=== PATIENT | male | born 1985 | race Caucasian/White ===

== ENCOUNTER 2017-12-25 13:58 | Emergency (ER) | payer BC, OTHER ==
[2017-12-25 14:00] VITALS: Ht 180.3 cm
[2017-12-25] MEDS ORDERED: AMOX875T PO (14:13)
[2017-12-25] MEDS ORDERED: LIDOCAINE 1% BUFFERED INJ 5 ML VIAL INFIL ONE (14:15)
[2017-12-25] MEDS ORDERED: AMOXICILLIN/CLAVULANATE TAB 875 MG TAB PO ONE (14:15)
[2017-12-25 15:01] VITALS: BP 128/86; PULSE 76; O2SAT 99
--- NOTE | 2017-12-25 15:16 | EMERGENCY ROOM VISIT NOTE ---
History First contact with patient: 14:05 Chief Complaint: BITE Stated Complaint: DOG BITE ON LEG History of Present Illness The patient is a 32 year old male who presents to the Emergency Room with complaints of dog bites to the left posterior leg. The patient reports that a friend's dog bit him at the friend's home. 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 The patient believes that his tetanus immunization is up-to-date, and rates his discomfort a 3 out of 10. He denies any paresthesias or numbness of the leg. Review of Systems 10 system review was performed and was negative except for pertinent positives and negatives as indicated in history of present illness Past Medical/Surgical History Medical Problems: (1) No significant past medical history Surgical Problems: (1) No history of previous surgery Family History No significant family history Social History Smoking Status: Never Smoker Alcohol Use: none Marital Status: Housing Status: lives with family Occupation Status: employed Current/Historical Medications Scheduled Amoxicillin & Pot Clavulanate (Augmentin 875-125 mg), 1 TAB PO BID Physical Exam Vital Signs Date Time Temp Pulse Resp B/P (MAP) Pulse Ox O2 Delivery O2 Flow Rate FiO2 12/25/17 15:01 76 20 128/86 99 12/25/17 14:00 82 20 135/91 98 Room Air Physical Exam CONSTITUTIONAL: Healthy and well nourished. Alert and oriented X 3 with positive affect. Patient does not appear in any acute distress. HEENT: Normocephalic, atraumatic. Pupils equal, round and reactive. NECK: Full active range of motion without discomfort. MUSCULOSKELETAL: Examination of the left posteromedial calf shows a 3.5 cm gaping laceration with mild fat extrusion. The patient also has a 1.5 cm curvilinear laceration over the posterolateral calf. No active bleeding or hematoma formation is noted at either site. Calf is soft and supple to palpation. No worsening pain with flexion or extension of the ankle or knee. Pedal pulses are intact. INTEGUMENTARY: No rash or other significant dermatologic conditions noted. NEUROLOGIC: Right lower extremity is sensory intact. Medical Decision & Procedures Medications Administered Medications (Trade) Dose Ordered Sig/Sophia Route Start Time Stop Time Status Last Admin Dose Admin Amoxicillin/ Clavulanate Potassium (Augmentin Tab) 875 mg ONE ONCE PO 5/15/18 14:15 12/25/17 14:18 DC 12/25/17 14:18 875 MG Procedure Laceration repair was performed under local anesthesia after receiving verbal request from the patient. Using buffered 1% lidocaine without epinephrine, good local anesthesia was administered. The wounds were then peripherally cleansed with iodine, then irrigated well with approximately 200 cc of normal saline. The wounds were then approximated using 4-0 nylon [id number] stitches. Bacitracin dressing was applied. ED Course Patient history and physical exam were performed. Nurse's notes were reviewed. Vital signs were reviewed and were normal. The patient was administered Augmentin 875/125. I did discuss wound management, including primary closure to improve healing process. I did discuss the risks of performing primary closure. The patient voiced understanding, and elected closure. Wound repair was performed under local anesthesia. The patient was provided additional verbal and written wound care instructions. Ice for swelling. Ibuprofen or Tylenol as needed for pain. Suture removal in 2 weeks. Return to the emergency department with any signs of developing infection. The patient was also provided a prescription for Augmentin twice daily for 5 days. The patient was happy with plan of care, voiced understanding of all discharge instructions , and denied any pain at the time of discharge. Medical Decision Medication Reconcilliation Current Medication List: was personally reviewed by me Blood Pressure Screening Patient's blood pressure: Normal blood pressure Impression Primary Impression: Dog bite of left lower leg Departure Information Dispostion Home / Self-Care Prescriptions Amoxicillin & Pot Clavulanate (Augmentin 875-125 mg) 1 Tab Tab 1 TAB PO BID for 5 Days, #10 TAB Prov: Porter Perez PA 12/25/17 Referrals Lashae Callaway, C.R.N.P. Forms HOME CARE DOCUMENTATION FORM, IMPORTANT VISIT INFORMATION Patient Instructions My [facility] Additional Instructions Keep wound clean and dry. Do not allow any crusting or dried blood to accumulate on sutures. If this occurs, use a 1:1 solution of hydrogen peroxide/ water on a Q-tip to clean the wound. Keep wounds covered with an antibiotic ointment and dressings to avoid irritation. Suture removal in 12-14 days. Return sooner for any signs of infection (increasing redness, swelling, drainage ). Ice and elevate for swelling and pain. Ibuprofen 600 mg and Tylenol 1000 mg every 6 hrs for pain. Complete all Augmentin antibiotics as prescribed. Return to the emergency department for any developing infection. Problem Qualifiers Primary Impression: Dog bite of left lower leg Encounter type: initial encounter Qualified Codes: S81.852A - Open bite, left lower leg, initial encounter; W54.0XXA - Bitten by dog, initial encounter
== END 2017-12-25 15:01 | disposition home or self-care (01) ==
LOC: C.EDB 14:01 → C.EDD 15:01
DX: S81.852A Open bite, left lower leg, initial encounter (principal); W54.0XXA Bitten by dog, initial encounter; Y92.89 Other specified places as the place of occurrence of the external cause